=== PATIENT | male | born 1985 | race Caucasian/White ===

== ENCOUNTER 2017-01-15 11:22 | Emergency (ER) | payer BC ==
--- NOTE | ~2017-01-15 | CT52 ---
[facility] A Service [facility] RADIOLOGY TEXT RESULTS PATIENT: MATTIE COLBERT LOCATION: [facility] : [birth year] UNIT #: [id number] AGE: [address]: Cornelius Wilson SEX: M ORDER DR: [id number] [facility] [address] [place], [place] [address] [id number] E MR#: [id number] Acc #: [id number] NAME: MATTIE COLBERT : 1985 SEX: M STUDY DATE/TIME: 01/15/2017 12:23 UNIT: CHE ROOM: STUDY DESCRIPTION: CT Cervical Spine Wo Cont Attending Physician: Cornelius Wilson Ordering Physician: Juan Torres M.D. Primary Care Physician: Primary Care Physician No MEDICAL IMAGING REPORT This report is preliminary unless electronic signature is present EXAM Cervical spine CT, 01/15 INDICATION Headache for 1 week with neck and back pain radiating to the shoulders. No trauma. TECHNIQUE Axial images were obtained through the cervical spine without contrast. Multiplanar reformats were obtained. This CT exam was performed with one or more of the following radiation dose reduction techniques: automatic exposure control, adjustment of mA and/or kV according to patient size, and iterative reconstruction. COMPARISON No comparison. FINDINGS No fracture or malalignment is identified. No significant disc bulging or herniation is seen. No central canal or neural foraminal stenosis is identified. IMPRESSION Normal cervical spine CT. Dictated by... Mp Greco Jr., M.D. THIS IS AN ELECTRONICALLY VERIFIED REPORT Mp Greco Jr., M.D. at 01/16/2017 8:11 AM CIARA/hayde [facility] A Service [facility] RADIOLOGY TEXT RESULTS PATIENT: MATTIE COLBERT LOCATION: [facility] : [birth year] UNIT #: [id number] AGE: [address]: Cornelius Wilson SEX: M ORDER DR: TD: 01/15/2017 13:24 JOB #: [id number] MEDICAL IMAGING REPORT COPY
--- NOTE | ~2017-01-15 | CT71 ---
[facility] A Service of [facility] RADIOLOGY TEXT RESULTS PATIENT: MATTIE COLBERT LOCATION: [facility] : [birth year] UNIT #: [id number] AGE: [address]: Cornelius Wilson SEX: M ORDER DR: [id number] [facility] [address] [place], [place] [address] [id number] E MR#: [id number] Acc #: [id number] NAME: MATTIE COLBERT : 1985 SEX: M STUDY DATE/TIME: 01/15/2017 12:13 UNIT: CHE ROOM: STUDY DESCRIPTION: CT Head Wo Contrast Attending Physician: Cornelius Wilson Ordering Physician: Juan Torres M.D. Primary Care Physician: Primary Care Physician No MEDICAL IMAGING REPORT This report is preliminary unless electronic signature is present EXAM CT head 12/1816 HISTORY Headache one week with pain down back of neck. Dizziness, nausea one week. Denies trauma. Shoulders. The CT exam was performed with one or more of the following radiation dose reduction techniques: automatic exposure control, adjustment of mA and/or kV according to patient size, and iterative reconstruction. FINDINGS CT head performed skull base to vertex without intravenous contrast. No comparisons. The brainstem is unremarkable. Cerebellum and cerebral hemispheres show normal lobato matter-white matter differentiation. No hemorrhage. No evidence of acute cortical ischemia. Midline structures nondisplaced. The basal ganglia are intact. The ventricles, cisterns and sulci are normal in size and contour. No intra or extraaxial mass effect or abnormal intracranial fluid collection. The visualized intraorbital soft tissues are unremarkable. The visualized paranasal sinuses and mastoid air cells are clear. No fracture. IMPRESSION 1. Brain appears normal. If patient has ongoing neurologic symptoms, consider follow up imaging. 2. The visualized paranasal sinuses and mastoid air cells are clear. Dictated by... Jarvis Lynn M.D. [facility] A Service of [facility] RADIOLOGY TEXT RESULTS PATIENT: MATTIE COLBERT LOCATION: CHE : 89 UNIT #: [id number] AGE: [address]: Cornelius Wilson SEX: M ORDER DR: THIS IS AN ELECTRONICALLY VERIFIED REPORT Jarvis Lynn M.D. at 01/16/2017 7:54 AM [place] TD: 01/15/2017 13:24 JOB #: [id number] MEDICAL IMAGING REPORT COPY
[~2017-01-15 11:22] MED LIST: ADVAIR 250-501 EACH IH; ATIVAN PO; BACITRACIN1 GM OINT EXT
== END 2017-01-15 13:22 | disposition home or self-care (01) ==
LOC: CED 11:22
DX: M54.12 Radiculopathy, cervical region (principal); F32.9 Major depressive disorder, single episode, unspecified; J45.909 Unspecified asthma, uncomplicated; F17.210 Nicotine dependence, cigarettes, uncomplicated
CPT/HCPCS: 70450; 72125; 96372; 99284; J1885